=== PATIENT | female | born 1950 | race Caucasian/White ===

== ENCOUNTER 2016-11-13 15:07 | Inpatient (IN) | payer BC, MEDICARE ==
[~2016-11-13] VITALS: Ht 161.3 cm; Wt 94.3 kg
[~2016-11-13 15:07] MED LIST: ASPI-482 PO; BUPR300T4 PO; CHOL20003 PO; DOCU50CA6 PO; ERYT500T17 PO; FENO135C PO; FENT1PAT17 TP; FEXO60TA25 PO; HYDR-2672 PO; HYDR-963 PO; HYDR-965 PO; HYDR25TA9 PO; IBUP200C PO; LORA1TAB PO; METO50TA2 PO; OMEP40CA5 PO; PRED20TA PO; SIMV80TA3 PO; SUCR1TAB PO; SUCRALFATE; VENL75TA PO
[2016-11-13 15:53] LABS: BASO # 0.1 x10^3/uL (0.0-0.2); BASO % 1 % (0-3); EOS % 1 % (0-3); HEMATOCRIT 42.3 % (36.0-47.0); HEMOGLOBIN 13.9 g/dL (12.0-15.5); LYMPH # 2.2 x10^3/uL (1.0-4.8); LYMPH % 17 % (24-48); MEAN CORPUSCULAR HEMOGLOBIN 28 pg (25-35); MEAN CORPUSCULAR HGB CONC 33 g/dL (31-37); MEAN CORPUSCULAR VOLUME 85 fL (79-100); MONO % 7 % (0-9); NEUT % 75 % (31-73); PLATELET COUNT 480 x10^3/uL (140-400); RED BLOOD COUNT 4.95 x10^6/uL (3.50-5.40); RED CELL DISTRIBUTION WIDTH 13.3 % (11.5-14.5); WHITE BLOOD COUNT 13.2 x10^3/uL (4.0-11.0)
[2016-11-13 16:04] LABS: CALCIUM 9.6 mg/dL (8.5-10.1); CREATININE 0.9 mg/dL (0.6-1.0); GFR 62.3; POTASSIUM 4.3 mmol/L (3.5-5.1)
--- NOTE | 2016-11-13 16:06 | EKG ---
[facility] [address] [place] [address] Test Date: 2016-11-13 Test Time: 15:24:19 Pat Name: CANDACE WAHL Department: Room: Gender: F [employer] Car Driver: : 1950 Requested By: VERÓNICA MATA Order Number: [id number] Reading MD: Fam Huitron Measurements Intervals [place] Rate: 68 P: 63 TX: 192 QRS: 46 QRSD: 96 T: 38 QT: 412 QTc: 438 Interpretive Statements SINUS RHYTHM Electronically Signed On 11-17-2016 10:07:26 RECEIVER BULK SYSTEM by Fam Huitron
[2016-11-13] MEDS ORDERED: GADOBUTROL 10 MMOL/10 ML VIAL IV ONE (16:30)
[2016-11-13] MEDS ORDERED: ONDANSETRON PF 4 MG/2 ML VIAL. IV PRN (16:45)
[2016-11-13] MEDS ORDERED: ACETAMINOPHEN 325 MG TABLET. PO PRN (16:45)
--- NOTE | 2016-11-13 16:49 | PHYS DOC ---
Past Medical History Past Medical History: Diabetes-Type II, Hypertension, Other Additional Past Medical Histor: CHRONIC BACK PAIN Past Surgical History: Other Additional Past Surgical Histo: RT KNEE, LAMINECTOMY X2 Alcohol Use: None Drug Use: None Adult General Chief Complaint Chief Complaint: NEURO SYMPTOMS/DEFICITS HPI HPI This is a 66-year-old female who developed an episode of lower extremity weakness which shaking while in the shower today patient states she had trouble standing and had to brace herself against a wall to avoid falling. Patient states she still feels extremely weak in her lower extremities and upon standing does seem to have shaking. She went into a urgent care today in the center here for further evaluation and she does relate over the last few months she's been having issues while driving her car in which she states her right foot has trouble pressing on the pedals. She is currently alert and oriented and able to follow commands. She denies any chest pain or SOB. She denies any fever or chills. Review of Systems Review of Systems Constitutional: Denies fever or chills [] Eyes: Denies change in visual acuity, redness, or eye pain [] HENT: Denies nasal congestion or sore throat [] Respiratory: Denies cough or shortness of breath [] Cardiovascular: No additional information not addressed in HPI [] GI: Denies abdominal pain, nausea, vomiting, bloody stools or diarrhea [] : Denies dysuria or hematuria [] Musculoskeletal: Denies back pain or joint pain [] Integument: Denies rash or skin lesions [] Neurologic: Denies headache, has some weakness, denies sensory changes [] Endocrine: Denies polyuria or polydipsia [] Current Medications Current Medications Current Medications Medications (Trade) Dose Ordered Sig/[facility] Start Time Stop Time Status Last Admin Dose Admin Acetaminophen (Tylenol) 650 mg PRN Q4HRS PRN 11/13/16 16:45 11/14/16 16:44 Aspirin (Nelly Aspirin) 325 mg 1X ONCE 11/13/16 17:00 11/13/16 17:01 DC Gadobutrol (Gadavist) 10 mmol 1X ONCE 11/13/16 16:30 11/13/16 16:31 DC 11/13/16 16:45 10 MMOL Ondansetron HCl (Zofran) 4 mg PRN Q8HRS PRN 11/13/16 16:45 11/14/16 16:44 Allergies Allergies Allergies Coded Allergies Type Severity Reaction Last Updated Verified nickel Allergy Intermediate Rash 02/20/14 Yes Physical Exam Physical Exam Constitutional: Well developed, well nourished, no acute distress, non-toxic appearance. [] HENT: Normocephalic, atraumatic, bilateral external ears normal, oropharynx moist, no oral exudates, nose normal. [] Eyes: PERRLA, EOMI, conjunctiva normal, no discharge. [] Neck: Normal range of motion, no tenderness, supple, no stridor. [] Cardiovascular:Heart rate regular rhythm, no murmur [] Lungs & Thorax: Bilateral breath sounds clear to auscultation [] Abdomen: Bowel sounds normal, soft, no tenderness, no masses, no pulsatile masses. [] Skin: Warm, dry, no erythema, no rash. [] Back: No tenderness, no CVA tenderness. [] Extremities: No tenderness, no cyanosis, no clubbing, ROM intact, no edema. [] Neurologic: Alert and oriented X 3, normal motor function, normal sensory function, mild intention tremor with heel to hyman test and finger to nose. [] Psychologic: Affect normal, judgement normal, mood normal. [] Current Patient Data Vital Signs Vital Signs Date Time Temp Pulse Resp B/P Pulse Ox O2 Delivery O2 Flow Rate FiO2 11/13/16 15:10 98.0 66 19 120/86 98 Room Air 98.0 Lab Values Laboratory Tests Test 11/13/16 15:19 11/13/16 15:20 Glucose (Fingerstick) 88mg/dL (70-99) White Blood Count 13.2x10^3/uL (4.0-11.0) H Red Blood Count 4.95x10^6/uL (3.50-5.40) Hemoglobin 13.9g/dL (12.0-15.5) Hematocrit 42.3% (36.0-47.0) Mean Corpuscular Volume 85fL (79-100) Mean Corpuscular Hemoglobin 28pg (25-35) Mean Corpuscular Hemoglobin Concent 33g/dL (31-37) Red Cell Distribution Width 13.3% (11.5-14.5) Platelet Count 480x10^3/uL (140-400) H Neutrophils (%) (Auto) 75% (31-73) H Lymphocytes (%) (Auto) 17% (24-48) L Monocytes (%) (Auto) 7% (0-9) Eosinophils (%) (Auto) 1% (0-3) Basophils (%) (Auto) 1% (0-3) Neutrophils # (Auto) 9.9x10^3uL (1.8-7.7) H Lymphocytes # (Auto) 2.2x10^3/uL (1.0-4.8) Monocytes # (Auto) 0.9x10^3/uL (0.0-1.1) Eosinophils # (Auto) 0.1x10^3/uL (0.0-0.7) Basophils # (Auto) 0.1x10^3/uL (0.0-0.2) Sodium Level 137mmol/L (136-145) Potassium Level 4.3mmol/L (3.5-5.1) Chloride Level 100mmol/L (98-107) Carbon Dioxide Level 28mmol/L (21-32) Anion Gap 9 (6-14) Blood Urea Nitrogen 18mg/dL (7-20) Creatinine 0.9mg/dL (0.6-1.0) Estimated GFR (Cockcroft-Gault) 62.3 Glucose Level 104mg/dL (70-99) H Calcium Level 9.6mg/dL (8.5-10.1) Laboratory Tests 11/13/16 15:20 Laboratory Tests 11/13/16 15:20 EKG EKG EKG as interpreted by ma shows sinus rhythm with rate of 68 bpm. No obvious signs of ischemia on this EKG. Radiology/Procedures Radiology/Procedures Brain MRI with and without contrast demonstrates the following: There is symmetric prominence of the ventricles and sulci. Scattered FLAIR hyperintensities throughout the supratentorial white matter and delon are nonspecific but most suggestive of moderate small vessel ischemic disease. There is a small old infarct in the delon on the right. There is an old lacunar infarct in the left caudate head. Prominent perivascular spaces are noted bilaterally in the basal ganglia. There is no acute intracranial hemorrhage or extra-axial fluid collection. There is no mass effect or midline shift. There is no restricted diffusion to suggest an acute infarct. The sagittal midline structures are unremarkable. The pituitary and suprasellar region are unremarkable. The intracranial flow voids are preserved. There is minimal ethmoid and maxillary mucosal thickening. There is no pathologic enhancement. Course & Med Decision Making Course & Med Decision Making Pertinent Labs and Imaging studies reviewed. (See chart for details) This 66-year-old female who's had lower extremity weakness and a brain MRI that is negative for any acute intracranial findings but does demonstrate left caudate and right pontine infarcts with some probable small vessel disease, be admitted to the hospital for further evaluation and treatment by neurology. I discussed case with the neurologist, Dr. Flores, who agreed with this plan and stated to check a urine toxicology panel as well as administer a full aspirin. I discussed the case also with Dr. Irving, who agreed to accept the patient for admission for her ongoing weakness and fall risk. At this time her blood work is unrevealing. Her EKG was negative for any acute signs of ischemia. Patient was ambulated and was still very unsteady with her gait. She was admitted without incident. Dragon Disclaimer Dragon Disclaimer This electronic medical record was generated, in whole or in part, using a voice recognition dictation system. Departure Departure Impression: Primary Impression: Weakness Additional Impression: Unsteady gait Disposition: ADMITTED INPATIENT Admitting Physician: Skylar Irving Condition: STABLE Referrals: ESVIN FALLON Jr, MD (PCP) Problem Qualifiers VERÓNICA MATA DO Nov 13, 2016 16:49
--- NOTE | 2016-11-13 16:49 | RAD ---
PROCEDURE MRI brain with and without contrast. HISTORY Right facial droop and confusion. TECHNIQUE Sagittal T1, axial T1, axial T2, axial FLAIR, axial T2 gradient, diffusion imaging with ADC map, post-contrast axial, and post-contrast coronal sequences are provided. The patient received 10 milliliters of intravenous Gadavist without complication. COMPARISON None provided. FINDINGS There is symmetric prominence of the ventricles and sulci. Scattered FLAIR hyperintensities throughout the supratentorial white matter and delon are nonspecific but most suggestive of moderate small vessel ischemic disease. There is a small old infarct in the delon on the right. There is an old lacunar infarct in the left caudate head. Prominent perivascular spaces are noted bilaterally in the basal ganglia. There is no acute intracranial hemorrhage or extra-axial fluid collection. There is no mass effect or midline shift. There is no restricted diffusion to suggest an acute infarct. The sagittal midline structures are unremarkable. The pituitary and suprasellar region are unremarkable. The intracranial flow voids are preserved. There is minimal ethmoid and maxillary mucosal thickening. There is no pathologic enhancement. IMPRESSION 1. No acute intracranial findings. 2. 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 3. Brain parenchymal volume loss and moderate probable small-vessel ischemic disease. Electronically signed by: Chi Streeter MD (Nov 13, 2016 16:47:50)
[2016-11-13] MEDS ORDERED: ASPIRIN 325 MG TABLET PO ONE (17:00)
[2016-11-13 18:00] VITALS: BP 113/66
[2016-11-13 18:01] VITALS: BP 113/66
[2016-11-13] MEDS ORDERED: GLIM1TAB2 PO (19:22)
[2016-11-13 19:58] VITALS: BP 122/55
--- NOTE | 2016-11-13 22:25 | PDOC1 ---
History and Physical Date of Admission Date of Admission DATE: 11/13/16 TIME: 22:19 Identification/Chief Complaint Chief Complaint leg weakness Source Source: Chart review, Patient History of Present Illness History of Present Illness Ms. Lovett, is a 66-year-old female Admit from ER for acute lower extremity weakness. She reports shaking while in the shower today; had to brace herself against a wall to avoid falling. Weakness in lower extremities only, she has felt well otherwise, no fever or chills or cough or travel. she now feels improved she does report falling and possibly losing consciousness twice in the past few months. Past Medical History Cardiovascular: HTN, Syncope, Hyperlipidemia Pulmonary: No pertinent hx Renal/: No pertinent hx Endocrine: Diabetes Dermatology: No pertinent hx Past Surgical History Past Surgical History: Total knee replacement Social History Smoke: No ALCOHOL: none Current Problem List Problem List Problems Medical Problems: (1) Unsteady gait Status: Acute (2) Weakness Status: Acute Problems: Current Medications Current Medications Current Medications Gadobutrol (Gadavist) 10 mmol 1X ONCE IV Last administered on 11/13/16 16:45 ; Start 11/13/16 at 16:30; Stop 11/13/16 at 16:31; Status DC Ondansetron HCl (Zofran) 4 mg PRN Q8HRS PRN IV NAUSEA/VOMITING; Start 11/13/16 at 16:45; Stop 11/14/16 at 16:44 Acetaminophen (Tylenol) 650 mg PRN Q4HRS PRN PO FEVER; Start 11/13/16 at 16:45 ; Stop 11/14/16 at 16:44 Aspirin (Nelly Aspirin) 325 mg 1X ONCE PO Last administered on 11/13/16 17:25 ; Start 11/13/16 at 17:00; Stop 11/13/16 at 17:01; Status DC Active Scripts Active Reported Glimepiride 1 Mg Tablet 1 Tab PO DAILY Hydrocodone-Apap 10-325 (Hydrocodone Bit/Acetaminophen) 1 Each Tablet 1 Tab PO PRN Q6HRS PRN Lorazepam 1 Mg Tablet 1 Mg PO PRN DAILY PRN Colace (Docusate Sodium) 50 Mg Capsule 50 Mg PO PRN Vitamin D3 (Cholecalciferol (Vitamin D3)) 2,000 Unit Capsule 2,000 Unit PO DAILY Aspir 81 (Aspirin) 81 Mg Tablet.dr 81 Mg PO DAILY Hydrochlorothiazide Tablet (Hydrochlorothiazide) 25 Mg Tablet 25 Mg PO DAILY Simvastatin 80 Mg Tablet 80 Mg PO HS Trilipix (Fenofibric Acid (Choline)) 135 Mg Capsule.dr 135 Mg PO DAILY Omeprazole 40 Mg Capsule.dr 40 Mg PO DAILY Metoprolol Tartrate 50 Mg Tablet 50 Mg PO BID Bupropion Xl (Bupropion Hcl) 300 Mg Tab.er.24h 300 Mg PO DAILY Venlafaxine Hcl 75 Mg Tablet 300 Mg PO DAILY Kate Allergy (Fexofenadine Hcl) 60 Mg Tablet 60 Mg PO PRN Allergies Allergies: Coded Allergies: nickel (Verified Allergy, Intermediate, Rash, 02/20/14) ROS General: YES: Fatigue, No: Appetite, Chills, Night Sweats, Other PSYCHOLOGICAL ROS: No: Anxiety, Behavioral Disorder, Concentration difficultie , Decreased libido, Depression, Disorientation, Hallucinations, Hostility, Irritablity, Memory difficulties, Mood Swings, Obsessive thoughts, Other, Physical abuse, Sexual abuse, Sleep disturbances, Suicidal ideation Eyes: No Blurry vision, No Decreased vision, No Double vision, No Dry eyes, No Excessive tearing, No Eye Pain, No Itchy Eyes, No Loss of vision, No Other, No Photophobia, No Scotomata, No Uses contacts, No Uses glasses HEENT: No: Epistaxis, Heacaches, Hearing change, Nasal congestion, Nasal discharge, Oral lesions, Other, Sinus pain, Sneezing, Snoring, Sore Throat, Tinnitus, Vertigo, Visual Changes, Vocal changes ALLERGY AND IMMUNOLOGY: No: Hives, Insect Bite Sensitivity, Itchy/Watery Eyes, Nasal Congestion, Other, Post Nasal Drip, Seasonal Allergies Respiratory: No: Cough, Hemoptysis, Orthopnea, Other, Pleuritic Pain, SOB with excertion, Shortness of breath, Sputum Changes, Stridor, Tachypnea, Wheezing Cardiovascular: No Chest Pain, No Edema, No Lt Headedness, No Orthopnea, No Other, No Palpitations, No Paroxysmal Noc. Dyspnea Gastrointestinal: No Abdominal Pain, No Constipation, No Diarrhea, No Hematochezia, No Melena, No Nausea, No Other, No Vomiting Genitourinary: No , No , No , No , No , No , No , No Discharge, No Dysuria, No Flank Pain, No Frequency, No Hematuria, No Incontinence, No Other, No Pain, No Retention, No Urgency Musculoskeletal: Yes Joint Pain, Yes Muscular Weakness, No Gait Disturbance, No Joint Stiffness, No Joint Swelling, No Muscle Pain, No Other, No Pain In:, No Swelling In: Neurological: Yes Gait Disturbance, No Behavorial Changes, No Bowel/Bladder ControlChng, No Confusion, No Dizziness, No Headaches, No Impaired Coord/balance, No Memory Loss, No Numbness/ Tingling, No Other, No Seizures, No Speech Problems, No Tremors, No Visual Changes, No Weakness Skin: No Acne, No Dry Skin, No Eczema, No Hair Changes, No Lumps, No Mole Changes, No Mottling, No Nail Changes, No Other, No Pruritus, No Rash, No Skin Lesion Changes Physical Exam General: Alert, Oriented X3, Cooperative HEENT: Atraumatic, PERRLA Lungs: Clear to auscultation Heart: S1S2, RRR Abdomen: Normal bowel sounds (obese), Soft Extremities: No clubbing, No cyanosis, No edema Skin: No rashes, No breakdown, No significant lesion Neuro: Normal speech, Normal tone, Sensation intact Psych/Mental Status: Mood NL Vitals Vitals Vital Signs Date Time Temp Pulse Resp B/P Pulse Ox O2 Delivery O2 Flow Rate FiO2 11/13/16 19:58 97.9 67 20 122/55 98 Room Air 97.9 Labs Labs Laboratory Tests Test 11/13/16 15:19 11/13/16 15:20 11/13/16 20:34 Glucose (Fingerstick) 88mg/dL (70-99) 152mg/dL (70-99) White Blood Count 13.2x10^3/uL (4.0-11.0) Red Blood Count 4.95x10^6/uL (3.50-5.40) Hemoglobin 13.9g/dL (12.0-15.5) Hematocrit 42.3% (36.0-47.0) Mean Corpuscular Volume 85fL (79-100) Mean Corpuscular Hemoglobin 28pg (25-35) Mean Corpuscular Hemoglobin Concent 33g/dL (31-37) Red Cell Distribution Width 13.3% (11.5-14.5) Platelet Count 480x10^3/uL (140-400) Neutrophils (%) (Auto) 75% (31-73) Lymphocytes (%) (Auto) 17% (24-48) Monocytes (%) (Auto) 7% (0-9) Eosinophils (%) (Auto) 1% (0-3) Basophils (%) (Auto) 1% (0-3) Neutrophils # (Auto) 9.9x10^3uL (1.8-7.7) Lymphocytes # (Auto) 2.2x10^3/uL (1.0-4.8) Monocytes # (Auto) 0.9x10^3/uL (0.0-1.1) Eosinophils # (Auto) 0.1x10^3/uL (0.0-0.7) Basophils # (Auto) 0.1x10^3/uL (0.0-0.2) Sodium Level 137mmol/L (136-145) Potassium Level 4.3mmol/L (3.5-5.1) Chloride Level 100mmol/L (98-107) Carbon Dioxide Level 28mmol/L (21-32) Anion Gap 9 (6-14) Blood Urea Nitrogen 18mg/dL (7-20) Creatinine 0.9mg/dL (0.6-1.0) Estimated GFR (Cockcroft-Gault) 62.3 Glucose Level 104mg/dL (70-99) Calcium Level 9.6mg/dL (8.5-10.1) Laboratory Tests Test 11/13/16 15:19 11/13/16 15:20 11/13/16 20:34 Glucose (Fingerstick) 88mg/dL (70-99) 152mg/dL (70-99) White Blood Count 13.2x10^3/uL (4.0-11.0) Red Blood Count 4.95x10^6/uL (3.50-5.40) Hemoglobin 13.9g/dL (12.0-15.5) Hematocrit 42.3% (36.0-47.0) Mean Corpuscular Volume 85fL (79-100) Mean Corpuscular Hemoglobin 28pg (25-35) Mean Corpuscular Hemoglobin Concent 33g/dL (31-37) Red Cell Distribution Width 13.3% (11.5-14.5) Platelet Count 480x10^3/uL (140-400) Neutrophils (%) (Auto) 75% (31-73) Lymphocytes (%) (Auto) 17% (24-48) Monocytes (%) (Auto) 7% (0-9) Eosinophils (%) (Auto) 1% (0-3) Basophils (%) (Auto) 1% (0-3) Neutrophils # (Auto) 9.9x10^3uL (1.8-7.7) Lymphocytes # (Auto) 2.2x10^3/uL (1.0-4.8) Monocytes # (Auto) 0.9x10^3/uL (0.0-1.1) Eosinophils # (Auto) 0.1x10^3/uL (0.0-0.7) Basophils # (Auto) 0.1x10^3/uL (0.0-0.2) Sodium Level 137mmol/L (136-145) Potassium Level 4.3mmol/L (3.5-5.1) Chloride Level 100mmol/L (98-107) Carbon Dioxide Level 28mmol/L (21-32) Anion Gap 9 (6-14) Blood Urea Nitrogen 18mg/dL (7-20) Creatinine 0.9mg/dL (0.6-1.0) Estimated GFR (Cockcroft-Gault) 62.3 Glucose Level 104mg/dL (70-99) Calcium Level 9.6mg/dL (8.5-10.1) VTE Prophylaxis Ordered VTE Prophylaxis Devices: No VTE Pharmacological Prophylaxi: Yes Assessment/Plan Assessment/Plan leg weakness, shaking, almost fell in the shower she report 2 prior episodes of syncope in the past few months leg weakness, acquired, walks with can or walker, consult Physiatry, may need rehab obesity, BMI 36 MRI brain shows prior ischemic disease, changes consistent with early vascular dementia admit JENS AL MD Nov 13, 2016 22:25
[2016-11-13 23:00] VITALS: BP 125/58
[2016-11-13] MEDS ORDERED: LORAZEPAM 1 MG TABLET. PO PRN (23:15)
[2016-11-14] MEDS: SIMVASTATIN 40 MG TABLET. PO SCH ×2 (00:09→20:38)
[2016-11-14] MEDS: METOPROLOL TART IMMED RELEASE 50 MG TABLET PO SCH ×3 (00:10→20:39)
[2016-11-14] MEDS: HYDROCODONE/APAP 10/325 TABLET. PO PRN ×2 (01:55→08:13)
[2016-11-14 03:00] VITALS: BP 128/61
[2016-11-14 06:06] LABS: BASO # 0.1 x10^3/uL (0.0-0.2); BASO % 1 % (0-3); EOS % 2 % (0-3); HEMATOCRIT 38.4 % (36.0-47.0); HEMOGLOBIN 12.4 g/dL (12.0-15.5); LYMPH # 2.5 x10^3/uL (1.0-4.8); LYMPH % 23 % (24-48); MEAN CORPUSCULAR HEMOGLOBIN 28 pg (25-35); MEAN CORPUSCULAR HGB CONC 32 g/dL (31-37); MEAN CORPUSCULAR VOLUME 88 fL (79-100); MONO % 8 % (0-9); NEUT % 66 % (31-73); PLATELET COUNT 362 x10^3/uL (140-400); RED BLOOD COUNT 4.36 x10^6/uL (3.50-5.40); RED CELL DISTRIBUTION WIDTH 13.4 % (11.5-14.5); WHITE BLOOD COUNT 10.6 x10^3/uL (4.0-11.0)
[2016-11-14 06:36] LABS: CALCIUM 9.2 mg/dL (8.5-10.1); CREATININE 0.9 mg/dL (0.6-1.0); GFR 62.3; POTASSIUM 3.8 mmol/L (3.5-5.1)
[2016-11-14 07:00] VITALS: BP 142/85
[2016-11-14] MEDS: FENOFIBRATE,MICRONIZED 134 MG CAPSULE PO SCH (08:12)
[2016-11-14] MEDS: ASPIRIN ENTERIC COATED 81 MG TABLET.DR. PO SCH (08:12)
[2016-11-14] MEDS: PANTOPRAZOLE 40 MG TABLET. PO SCH (08:12)
[2016-11-14] MEDS: HYDROCHLOROTHIAZIDE 25 MG TABLET PO SCH (08:12)
[2016-11-14] MEDS: CHOLECALCIFEROL (VITAMIN D3) 1,000 UNIT TABLET PO SCH (08:14)
[2016-11-14] MEDS: VENLAFAXINE 75 MG TABLET. PO SCH (08:15)
[2016-11-14] MEDS: GLIMEPIRIDE 2 MG TABLET PO SCH (08:15)
[2016-11-14] MEDS: buPROPion XL 150 MG TAB.ER.24H PO SCH (08:15)
[2016-11-14] MEDS ORDERED: METOPROLOL TART IMMED RELEASE 50 MG TABLET PO SCH (09:00)
[2016-11-14] MEDS ORDERED: BUPIVACAINE MPF 0.25% 10 ML VIAL. IJ ONE (10:15)
[2016-11-14] MEDS ORDERED: methylPREDNISolone ACETATE 40 MG/ML VIAL. IM ONE (10:15)
[2016-11-14 11:00] VITALS: BP 140/56
[2016-11-14 11:59] LABS: BILIRUBIN,URINE NEGATIVE (NEG); GLUCOSE,URINE NEGATIVE (NEG); NITRITE,URINE NEGATIVE (NEG); PROTEIN,URINE NEGATIVE (NEG-TRACE)
[2016-11-14 12:03] LABS: BARBITURATES NEG (NEG); BENZODIAZEPINES NEG (NEG); CANNABINOIDS NEG (NEG); COCAINE NEG (NEG); METHADONE NEG (NEG); OPIATES POS (NEG); PHENCYCLIDINE NEG (NEG)
[2016-11-14 12:08] LABS: ETHANOL, URINE NEG (NEG)
[2016-11-14 12:38] LABS: BACTERIA,URINE FEW /HPF (0-FEW); RBC,URINE RARE /HPF (0-2); SQUAMOUS EPITHELIAL CELL,UR FEW /LPF
--- NOTE | 2016-11-14 13:18 | RAD ---
PROCEDURE MRI cervical spine without contrast. HISTORY Right arm numbness. Shaking and balance problems. Neck pain and hyperreflexia of left knee. TECHNIQUE Sagittal T1, sagittal T2, sagittal STIR, axial T2, and axial T2 gradient sequences are provided. COMPARISON None. FINDINGS There is no malalignment. There is no marrow edema. There is no worrisome marrow lesion. There is no cord signal abnormality. T2 hyperintensity in the delon is nonspecific but typically secondary to small vessel ischemic disease. Correlate with any concern for central pontine myelinolysis. There is cerebellar volume loss. Degenerative findings by individual level are as follows: C2-C3: There is minimal buckling of ligamentum flavum but no canal or foraminal compromise. C3-C4: There is a disc osteophyte complex and uncinate process spurring with buckling of ligamentum flavum. There is minimal facet hypertrophy. Midline AP diameter of the thecal sac is mildly narrowed down to 8-9 millimeters. There is mild to moderate right and mild left foraminal narrowing. C4-C5: There is a disc osteophyte complex and uncinate process spurring. There is buckling of ligamentum flavum. Midline AP diameter of the thecal sac is narrowed to 10 millimeters. There is at least moderate left and [id number] right foraminal narrowing. C5-C6: There is a disc osteophyte complex and uncinate process spurring. There is buckling of ligamentum flavum. Midline AP diameter of the thecal sac is narrowed to 9 millimeters. There is high-grade left and probably moderate to severe right foraminal narrowing. C6-C7: Disc bulge and minimal uncinate process spurring are noted without high-grade canal or foraminal compromise. C7-T1: Minimal disc bulge and uncinate process spurring are noted with mild to moderate left and mild right foraminal narrowing. IMPRESSION Disc osteophyte complexes, uncinate process spurring, and buckling of ligamentum flavum are noted throughout the cervical spine. Canal stenosis is noted from C3-C4 through C5-C6. There are several levels of foraminal narrowing, as described above. Electronically signed by: Chi Streeter MD (Nov 14, 2016 13:16:37)
--- NOTE | 2016-11-14 13:46 | RAD ---
Carotid ultrasound, 11/14/2016: History: CVA symptoms Duplex evaluation of the carotid arteries in the neck was performed including grayscale, color-flow and spectral Doppler analysis. There is moderate atherosclerotic plaquing at both carotid bifurcations. The plaques are partially calcified. On the left there is a mild velocity celebration in the internal carotid artery up to 135 cm/s. The end-diastolic velocity at that level is 34 cm/s. The internal carotid artery to common carotid artery ratio is 1.9. The peak systolic velocity suggest narrowing in the 50 to 70% diameter range, while the end-diastolic velocity measurements and internal carotid to common carotid artery ratio suggests a lesser degree of narrowing. No significant velocity acceleration is evident at the right carotid bifurcation. The peak systolic velocity in the right internal carotid artery is 76 cm/s. Antegrade flow is present in both vertebral arteries in the neck. IMPRESSION: Moderate atherosclerotic plaquing at both carotid bifurcations, left greater than right, with underlying luminal narrowing in the 0-50% diameter range bilaterally. Note: Stenosis calculations for CT, MRA and conventional angiography are based upon determination of the distal ICA diameter in accordance with the NASCET methodology. Stenosis calculations for Doppler studies are derived from validated velocity criteria which are known to correlate with NASCET methodology of determining stenosis.
--- NOTE | 2016-11-14 14:21 | RAD ---
PROCEDURE MRI lumbar spine without contrast. HISTORY Bilateral leg weakness. History of 2 prior laminectomies. Shaking and balance problems. Hyperreflexia of left knee. TECHNIQUE Sagittal T1, sagittal T2, sagittal STIR, axial T1, and axial T2 sequences are provided. COMPARISON August 07, 2014. FINDINGS Mild dextrocurvature centered at L2-L3 is again noted. Negligible anterolisthesis is noted at L3-L4. 4 millimeters of anterolisthesis is noted at L4-L5. Decompression from L3-L4 through L5-S1 is again noted. Endplate edema is noted at L2-L3, increased from prior. Endplate irregularity at L2-L3 is increased as well. A few Schmorl's nodes in the lumbar spine are present. There is diffuse disc desiccation. The conus medullaris is normal in signal intensity and in position. The numbering system assumes 5 lumbar type vertebral bodies. Findings by individual level are as follows: L1-L2: There is facet hypertrophy without canal or foraminal compromise. L2-L3: There is a disc osteophyte complex. There is a left foraminal/far lateral broad-based protrusion. There is facet hypertrophy. Midline AP diameter of the thecal sac is mildly narrowed to 11 millimeters. There is mild left lateral recess narrowing. There is mild to moderate left and moderate right foraminal narrowing. L3-L4: Disc bulge and facet hypertrophy are noted. Midline AP diameter of the thecal sac is minimally narrowed to 12 millimeters. There is mild to moderate bilateral foraminal narrowing, right exiting nerve root compressed L4-L5: Disc bulge and facet hypertrophy are noted. There is no canal stenosis post decompression. Midline AP diameter of the thecal sac is 14 millimeters. There is mild to moderate bilateral foraminal narrowing, right exiting nerve root in contact with the disc bulge and the left exiting nerve root compressed by the disc bulge and hypertrophic facet. L5-S1: Disc osteophyte complex is eccentric to the left. Minimal facet hypertrophy is noted. There is no canal stenosis. There is mild left foraminal narrowing. IMPRESSION 1. Degenerative disc disease and facet hypertrophy are noted throughout the lumbar spine. Findings have increased from 2014. Particularly, endplate edema and irregularity at L2-L3 has increased. This is favored to be degenerative in etiology. Correlate with any concern for osteomyelitis and discitis. 2. Posterior decompression from L3-L4 through L5-S1. Electronically signed by: Chi Streeter MD (Nov 14, 2016 14:20:25)
[2016-11-14 15:00] VITALS: BP 139/59
--- NOTE | 2016-11-14 17:38 | PDOC2 ---
NEUROLOGY CONSULT Date of Admission Date of Admission DATE: 11/14/16 TIME: 17:24 Reason for Consult Reason for Consult: IMPRESSION: LE weakness on 11/13. L2-3 discitis Syncope or presyncope. 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 Opiates positive in system Obesity. Memory decline. No evidence of acute CVA this time. RECOMMENDATIONS/PLAN: Continue ASA daily. Continue Zocor HS. lab: see orders. OT/PT Weight reduction. Please consult NS for possible L-spine discitis. See at [facility] as [facility]-patient for memory problem. FU with PCP. HISTORY OF THE PRESENT ILLNESS: 66-y-old female patient with above medical diseases had a syncopal or presyncopal episode and symptoms of LE weakness and shakings during and after shower on 11/13. She stated she had chronic back problems and had back surgery in past. No symptoms of cranial nerve and her UE were not involved this time. No urinary or bowel dysfunction.Neurological evaluation ruled out acute CVA. Her L-spine MRI concerned L2-3 discitis. PAST MEDICAL HISTORY: Please see above. PAST SURGERY HISTORY: L-spine surgery, fusion. Right knee replacement. ALLERGY: Reviewed. MEDICATIONS: Refer to [facility] FAMILY HISTORY: Non contributory. SOCIAL HISTORY: Lives with her at home. Denies current substance and illicit drug use. REVIEW OF SYSTEMS: Constitutional: No malnutrition, weight loss, cachexia. Head: No traumatic brain or head injury. Skin: No edema, or rash. Ear: No infection, tinnitus. Eyes: No vision loss or color blindness. Nose: No bleeding or purulent discharges. Hearing: No hearing decrease. Neck: No injury. Breast: No history of cancer, masses,or discharges. Cardiac: HTN, HLD. Pulmonary: No COPD. GI: No GI ulcer, GI bleeding. Urinary/genital: UTI. Endocrinologic: Obesity. Skeletomuscular: OA, back pain. Neurological: see HP. Psychiatric: Denies drug use/abuse. Otherwise, not [id number] review of systems. PHYSICAL EXAMINATION: General appearance is in no acute distress. HEENT: Normocephalic and nontraumatic. Eyes, nose, ears, and throat are unremarkable. Neck is supple. No lymphadenopathy. No crepitus. Cardiovascular: S1, S2, regular rate and rhythm. Pulmonary: Clear to auscultation bilaterally. Abdomen: Bowel sounds are positive. Extremities: No rash, lesions, or edema. No restriction of range of motion NEUROLOGICAL EXAMINATION: Awake. Oriented to time, place and person. PERRL. EOMI. CN: no focal findings. Muscle tone: within normal. Muscle strength: 5- DTR: 2+ UE and left knee, 1 right knee Plantar reflex: Neutral response bilaterally Gait: not examined in bed. Sensory exam: no acute abnormal findings. No obvious cerebellar signs elicited. Current Medications Current Medications Current Medications Gadobutrol (Gadavist) 10 mmol 1X ONCE IV Last administered on 11/13/16 16:45 ; Start 11/13/16 at 16:30; Stop 11/13/16 at 16:31; Status DC Ondansetron HCl (Zofran) 4 mg PRN Q8HRS PRN IV NAUSEA/VOMITING; Start 11/13/16 at 16:45; Stop 11/14/16 at 16:44; Status DC Acetaminophen (Tylenol) 650 mg PRN Q4HRS PRN PO FEVER; Start 11/13/16 at 16:45 ; Stop 11/14/16 at 16:44; Status DC Aspirin (Nelly Aspirin) 325 mg 1X ONCE PO Last administered on 11/13/16 17:25 ; Start 11/13/16 at 17:00; Stop 11/13/16 at 17:01; Status DC Aspirin (Ecotrin) 81 mg DAILY PO Last administered on 11/14/16 08:12; Start at 09:00 Hydrochlorothiazide (Hydrodiuril) 25 mg DAILY PO Last administered on 08:12; Start 11/14/16 at 09:00 Acetaminophen/ Hydrocodone Bitart (Lortab 10/325) 1 tab PRN Q6HRS PRN PO PAIN Last administered on 11/14/16 08:13; Start 11/13/16 at 23:15 Lorazepam (Ativan) 1 mg PRN DAILY PRN PO ANXIETY / AGITATION; Start 11/13/16 at 23:15 Metoprolol Tartrate (Lopressor) 50 mg BID PO ; Start 11/14/16 at 09:00; Stop at 09:00; Status DC Venlafaxine HCl (Effexor) 300 mg DAILY PO Last administered on 11/14/16 08:15 ; Start 11/14/16 at 09:00 Bupropion HCl (Wellbutrin Xl) 300 mg DAILY PO Last administered on 11/14/16 08 :15; Start 11/14/16 at 09:00 Vitamin D (Vitamin D3) 2,000 unit DAILY PO Last administered on 11/14/16 08:14 ; Start 11/14/16 at 09:00 Fenofibrate (Lofibra) 134 mg DAILY PO Last administered on 11/14/16 08:12; Start 11/14/16 at 09:00 Glimepiride (Amaryl) 1 mg DAILY PO Last administered on 11/14/16 08:15; Start 11/14/16 at 09:00 Pantoprazole Sodium (Protonix) 40 mg DAILYAC PO Last administered on 11/14/16 08:12; Start 11/14/16 at 07:30 Simvastatin (Zocor) 80 mg HS PO ; Start 11/14/16 at 21:00; Stop 11/14/16 at 21: 00; Status DC Metoprolol Tartrate (Lopressor) 50 mg BID PO Last administered on 11/14/16 08: 14; Start 11/13/16 at 23:45 Simvastatin (Zocor) 80 mg HS PO Last administered on 11/14/16 00:09; Start at 23:45 Methylprednisolone Acetate (Depo-Medrol 40mg Vial) 40 mg 1X ONCE IM ; Start at 10:15; Stop 11/14/16 at 10:16; Status DC Bupivacaine HCl (Sensorcaine-Mpf 0.25%) 10 ml 1X ONCE IJ ; Start 11/14/16 at 10 :15; Stop 11/14/16 at 10:16; Status DC Active Scripts Active Reported Glimepiride 1 Mg Tablet 1 Tab PO DAILY Hydrocodone-Apap 10-325 (Hydrocodone Bit/Acetaminophen) 1 Each Tablet 1 Tab PO PRN Q6HRS PRN Lorazepam 1 Mg Tablet 1 Mg PO PRN DAILY PRN Colace (Docusate Sodium) 50 Mg Capsule 50 Mg PO PRN Vitamin D3 (Cholecalciferol (Vitamin D3)) 2,000 Unit Capsule 2,000 Unit PO DAILY Aspir 81 (Aspirin) 81 Mg Tablet.dr 81 Mg PO DAILY Hydrochlorothiazide Tablet (Hydrochlorothiazide) 25 Mg Tablet 25 Mg PO DAILY Simvastatin 80 Mg Tablet 80 Mg PO HS Trilipix (Fenofibric Acid (Choline)) 135 Mg Capsule. 135 Mg PO DAILY Omeprazole 40 Mg Capsule.dr 40 Mg PO DAILY Metoprolol Tartrate 50 Mg Tablet 50 Mg PO BID Bupropion Xl (Bupropion Hcl) 300 Mg Tab.er.24h 300 Mg PO DAILY Venlafaxine Hcl 75 Mg Tablet 300 Mg PO DAILY Kate Allergy (Fexofenadine Hcl) 60 Mg Tablet 60 Mg PO PRN Allergies Allergies: Coded Allergies: nickel (Verified Allergy, Intermediate, Rash, 02/20/14) Vitals VITALS Vital Signs Date Time Temp Pulse Resp B/P Pulse Ox O2 Delivery O2 Flow Rate FiO2 11/14/16 15:00 98.5 70 18 139/59 97 Room Air 98.5 Labs Labs Laboratory Tests Test 11/13/16 15:19 11/13/16 15:20 11/13/16 20:34 11/14/16 05:20 Glucose (Fingerstick) 88mg/dL (70-99) 152mg/dL (70-99) White Blood Count 13.2x10^3/uL (4.0-11.0) 10.6x10^3/uL (4.0-11.0) Red Blood Count 4.95x10^6/uL (3.50-5.40) 4.36x10^6/uL (3.50-5.40) Hemoglobin 13.9g/dL (12.0-15.5) 12.4g/dL (12.0-15.5) Hematocrit 42.3% (36.0-47.0) 38.4% (36.0-47.0) Mean Corpuscular Volume 85fL (79-100) 88fL (79-100) Mean Corpuscular Hemoglobin 28pg (25-35) 28pg (25-35) Mean Corpuscular Hemoglobin Concent 33g/dL (31-37) 32g/dL (31-37) Red Cell Distribution Width 13.3% (11.5-14.5) 13.4% (11.5-14.5) Platelet Count 480x10^3/uL (140-400) 362x10^3/uL (140-400) Neutrophils (%) (Auto) 75% (31-73) 66% (31-73) Lymphocytes (%) (Auto) 17% (24-48) 23% (24-48) Monocytes (%) (Auto) 7% (0-9) 8% (0-9) Eosinophils (%) (Auto) 1% (0-3) 2% (0-3) Basophils (%) (Auto) 1% (0-3) 1% (0-3) Neutrophils # (Auto) 9.9x10^3uL (1.8-7.7) 6.9x10^3uL (1.8-7.7) Lymphocytes # (Auto) 2.2x10^3/uL (1.0-4.8) 2.5x10^3/uL (1.0-4.8) Monocytes # (Auto) 0.9x10^3/uL (0.0-1.1) 0.8x10^3/uL (0.0-1.1) Eosinophils # (Auto) 0.1x10^3/uL (0.0-0.7) 0.2x10^3/uL (0.0-0.7) Basophils # (Auto) 0.1x10^3/uL (0.0-0.2) 0.1x10^3/uL (0.0-0.2) Sodium Level 137mmol/L (136-145) 140mmol/L (136-145) Potassium Level 4.3mmol/L (3.5-5.1) 3.8mmol/L (3.5-5.1) Chloride Level 100mmol/L (98-107) 103mmol/L (98-107) Carbon Dioxide Level 28mmol/L (21-32) 29mmol/L (21-32) Anion Gap 9 (6-14) 8 (6-14) Blood Urea Nitrogen 18mg/dL (7-20) 20mg/dL (7-20) Creatinine 0.9mg/dL (0.6-1.0) 0.9mg/dL (0.6-1.0) Estimated GFR (Cockcroft-Gault) 62.3 62.3 Glucose Level 104mg/dL (70-99) 108mg/dL (70-99) Calcium Level 9.6mg/dL (8.5-10.1) 9.2mg/dL (8.5-10.1) Test 11/14/16 08:00 11/14/16 11:30 11/14/16 13:22 11/14/16 15:30 Glucose (Fingerstick) 131mg/dL (70-99) 108mg/dL (70-99) Urine Collection Type Unknown Urine Color Yellow Urine Clarity Clear Urine pH 7.0 Urine Specific [place] 1.020 Urine Protein Negativemg/dL (NEG-TRACE) Urine Glucose (UA) Negativemg/dL (NEG) Urine Ketones (Stick) Negativemg/dL (NEG) Urine Blood Negative (NEG) Urine Nitrite Negative (NEG) Urine Bilirubin Negative (NEG) Urine Urobilinogen Dipstick 1.0mg/dL (0.2 mg/dL) Urine Leukocyte Esterase Moderate (NEG) Urine RBC Rare/HPF (0-2) Urine WBC 5-10/HPF (0-4) Urine Squamous Epithelial Cells Few/LPF Urine Bacteria Few/HPF (0-FEW) Urine Mucus Slight/LPF Urine Opiates Screen Pos (NEG) Urine Methadone Screen Neg (NEG) Urine Barbiturates Neg (NEG) Urine Phencyclidine Screen Neg (NEG) Urine Amphetamine/Methamphetamine Neg (NEG) Urine Benzodiazepines Screen Neg (NEG) Urine Cocaine Screen Neg (NEG) Urine Cannabinoids Screen Neg (NEG) Urine Ethyl Alcohol Neg (NEG) Erythrocyte Sedimentation Rate 32 (0-25) Creatine Kinase 78U/L (26-192) Laboratory Tests Test 11/13/16 20:34 11/14/16 05:20 11/14/16 08:00 11/14/16 11:30 Glucose (Fingerstick) 152mg/dL (70-99) 131mg/dL (70-99) White Blood Count 10.6x10^3/uL (4.0-11.0) Red Blood Count 4.36x10^6/uL (3.50-5.40) Hemoglobin 12.4g/dL (12.0-15.5) Hematocrit 38.4% (36.0-47.0) Mean Corpuscular Volume 88fL (79-100) Mean Corpuscular Hemoglobin 28pg (25-35) Mean Corpuscular Hemoglobin Concent 32g/dL (31-37) Red Cell Distribution Width 13.4% (11.5-14.5) Platelet Count 362x10^3/uL (140-400) Neutrophils (%) (Auto) 66% (31-73) Lymphocytes (%) (Auto) 23% (24-48) Monocytes (%) (Auto) 8% (0-9) Eosinophils (%) (Auto) 2% (0-3) Basophils (%) (Auto) 1% (0-3) Neutrophils # (Auto) 6.9x10^3uL (1.8-7.7) Lymphocytes # (Auto) 2.5x10^3/uL (1.0-4.8) Monocytes # (Auto) 0.8x10^3/uL (0.0-1.1) Eosinophils # (Auto) 0.2x10^3/uL (0.0-0.7) Basophils # (Auto) 0.1x10^3/uL (0.0-0.2) Sodium Level 140mmol/L (136-145) Potassium Level 3.8mmol/L (3.5-5.1) Chloride Level 103mmol/L (98-107) Carbon Dioxide Level 29mmol/L (21-32) Anion Gap 8 (6-14) Blood Urea Nitrogen 20mg/dL (7-20) Creatinine 0.9mg/dL (0.6-1.0) Estimated GFR (Cockcroft-Gault) 62.3 Glucose Level 108mg/dL (70-99) Calcium Level 9.2mg/dL (8.5-10.1) Urine Collection Type Unknown Urine Color Yellow Urine Clarity Clear Urine pH 7.0 Urine Specific [place] 1.020 Urine Protein Negativemg/dL (NEG-TRACE) Urine Glucose (UA) Negativemg/dL (NEG) Urine Ketones (Stick) Negativemg/dL (NEG) Urine Blood Negative (NEG) Urine Nitrite Negative (NEG) Urine Bilirubin Negative (NEG) Urine Urobilinogen Dipstick 1.0mg/dL (0.2 mg/dL) Urine Leukocyte Esterase Moderate (NEG) Urine RBC Rare/HPF (0-2) Urine WBC 5-10/HPF (0-4) Urine Squamous Epithelial Cells Few/LPF Urine Bacteria Few/HPF (0-FEW) Urine Mucus Slight/LPF Urine Opiates Screen Pos (NEG) Urine Methadone Screen Neg (NEG) Urine Barbiturates Neg (NEG) Urine Phencyclidine Screen Neg (NEG) Urine Amphetamine/Methamphetamine Neg (NEG) Urine Benzodiazepines Screen Neg (NEG) Urine Cocaine Screen Neg (NEG) Urine Cannabinoids Screen Neg (NEG) Urine Ethyl Alcohol Neg (NEG) Test 11/14/16 13:22 11/14/16 15:30 Glucose (Fingerstick) 108mg/dL (70-99) Erythrocyte Sedimentation Rate 32 (0-25) Creatine Kinase 78U/L (26-192) ANTONELLA LOPEZ MD Nov 14, 2016 17:38
--- NOTE | 2016-11-14 19:31 | PDOC ---
PROGRESS NOTES Chief Complaint Chief Complaint cc: leg weakness A.P Bilateral leg weakness, transient HTN DM Plan MRI Lspine pending PMNR following neurology following HTN/DM stable labs reviewed on exam, no weakness in LE PT.OT History of Present Illness History of Present Illness NO WEAKNESS NO GAIT PROBLEMS Vitals Vitals Vital Signs Date Time Temp Pulse Resp B/P Pulse Ox O2 Delivery O2 Flow Rate FiO2 11/14/16 15:00 98.5 70 18 139/59 97 Room Air 98.5 Physical Exam General: Alert, Oriented X3, Cooperative Heart: Normal S1, Normal S2 Abdomen: Normal bowel sounds (obese), Soft Extremities: No clubbing, No cyanosis, No edema Skin: No rashes, No breakdown, No significant lesion Labs LABS Laboratory Tests Test 11/13/16 20:34 11/14/16 05:20 11/14/16 08:00 11/14/16 11:30 Glucose (Fingerstick) 152mg/dL (70-99) 131mg/dL (70-99) White Blood Count 10.6x10^3/uL (4.0-11.0) Red Blood Count 4.36x10^6/uL (3.50-5.40) Hemoglobin 12.4g/dL (12.0-15.5) Hematocrit 38.4% (36.0-47.0) Mean Corpuscular Volume 88fL (79-100) Mean Corpuscular Hemoglobin 28pg (25-35) Mean Corpuscular Hemoglobin Concent 32g/dL (31-37) Red Cell Distribution Width 13.4% (11.5-14.5) Platelet Count 362x10^3/uL (140-400) Neutrophils (%) (Auto) 66% (31-73) Lymphocytes (%) (Auto) 23% (24-48) Monocytes (%) (Auto) 8% (0-9) Eosinophils (%) (Auto) 2% (0-3) Basophils (%) (Auto) 1% (0-3) Neutrophils # (Auto) 6.9x10^3uL (1.8-7.7) Lymphocytes # (Auto) 2.5x10^3/uL (1.0-4.8) Monocytes # (Auto) 0.8x10^3/uL (0.0-1.1) Eosinophils # (Auto) 0.2x10^3/uL (0.0-0.7) Basophils # (Auto) 0.1x10^3/uL (0.0-0.2) Sodium Level 140mmol/L (136-145) Potassium Level 3.8mmol/L (3.5-5.1) Chloride Level 103mmol/L (98-107) Carbon Dioxide Level 29mmol/L (21-32) Anion Gap 8 (6-14) Blood Urea Nitrogen 20mg/dL (7-20) Creatinine 0.9mg/dL (0.6-1.0) Estimated GFR (Cockcroft-Gault) 62.3 Glucose Level 108mg/dL (70-99) Calcium Level 9.2mg/dL (8.5-10.1) Urine Collection Type Unknown Urine Color Yellow Urine Clarity Clear Urine pH 7.0 Urine Specific [place] 1.020 Urine Protein Negativemg/dL (NEG-TRACE) Urine Glucose (UA) Negativemg/dL (NEG) Urine Ketones (Stick) Negativemg/dL (NEG) Urine Blood Negative (NEG) Urine Nitrite Negative (NEG) Urine Bilirubin Negative (NEG) Urine Urobilinogen Dipstick 1.0mg/dL (0.2 mg/dL) Urine Leukocyte Esterase Moderate (NEG) Urine RBC Rare/HPF (0-2) Urine WBC 5-10/HPF (0-4) Urine Squamous Epithelial Cells Few/LPF Urine Bacteria Few/HPF (0-FEW) Urine Mucus Slight/LPF Urine Opiates Screen Pos (NEG) Urine Methadone Screen Neg (NEG) Urine Barbiturates Neg (NEG) Urine Phencyclidine Screen Neg (NEG) Urine Amphetamine/Methamphetamine Neg (NEG) Urine Benzodiazepines Screen Neg (NEG) Urine Cocaine Screen Neg (NEG) Urine Cannabinoids Screen Neg (NEG) Urine Ethyl Alcohol Neg (NEG) Test 11/14/16 13:22 11/14/16 15:30 Glucose (Fingerstick) 108mg/dL (70-99) Erythrocyte Sedimentation Rate 32 (0-25) Creatine Kinase 78U/L (26-192) Assessment and Plan Assessmemt and Plan Problems Medical Problems: (1) Unsteady gait Status: Acute (2) Weakness Status: Acute Problems: Comment Review of Relevant I have reviewed the following items lawrence (where applicable) has been applied. Labs Laboratory Tests Test 11/13/16 15:19 11/13/16 15:20 11/13/16 20:34 11/14/16 05:20 Glucose (Fingerstick) 88mg/dL (70-99) 152mg/dL (70-99) White Blood Count 13.2x10^3/uL (4.0-11.0) 10.6x10^3/uL (4.0-11.0) Red Blood Count 4.95x10^6/uL (3.50-5.40) 4.36x10^6/uL (3.50-5.40) Hemoglobin 13.9g/dL (12.0-15.5) 12.4g/dL (12.0-15.5) Hematocrit 42.3% (36.0-47.0) 38.4% (36.0-47.0) Mean Corpuscular Volume 85fL (79-100) 88fL (79-100) Mean Corpuscular Hemoglobin 28pg (25-35) 28pg (25-35) Mean Corpuscular Hemoglobin Concent 33g/dL (31-37) 32g/dL (31-37) Red Cell Distribution Width 13.3% (11.5-14.5) 13.4% (11.5-14.5) Platelet Count 480x10^3/uL (140-400) 362x10^3/uL (140-400) Neutrophils (%) (Auto) 75% (31-73) 66% (31-73) Lymphocytes (%) (Auto) 17% (24-48) 23% (24-48) Monocytes (%) (Auto) 7% (0-9) 8% (0-9) Eosinophils (%) (Auto) 1% (0-3) 2% (0-3) Basophils (%) (Auto) 1% (0-3) 1% (0-3) Neutrophils # (Auto) 9.9x10^3uL (1.8-7.7) 6.9x10^3uL (1.8-7.7) Lymphocytes # (Auto) 2.2x10^3/uL (1.0-4.8) 2.5x10^3/uL (1.0-4.8) Monocytes # (Auto) 0.9x10^3/uL (0.0-1.1) 0.8x10^3/uL (0.0-1.1) Eosinophils # (Auto) 0.1x10^3/uL (0.0-0.7) 0.2x10^3/uL (0.0-0.7) Basophils # (Auto) 0.1x10^3/uL (0.0-0.2) 0.1x10^3/uL (0.0-0.2) Sodium Level 137mmol/L (136-145) 140mmol/L (136-145) Potassium Level 4.3mmol/L (3.5-5.1) 3.8mmol/L (3.5-5.1) Chloride Level 100mmol/L (98-107) 103mmol/L (98-107) Carbon Dioxide Level 28mmol/L (21-32) 29mmol/L (21-32) Anion Gap 9 (6-14) 8 (6-14) Blood Urea Nitrogen 18mg/dL (7-20) 20mg/dL (7-20) Creatinine 0.9mg/dL (0.6-1.0) 0.9mg/dL (0.6-1.0) Estimated GFR (Cockcroft-Gault) 62.3 62.3 Glucose Level 104mg/dL (70-99) 108mg/dL (70-99) Calcium Level 9.6mg/dL (8.5-10.1) 9.2mg/dL (8.5-10.1) Test 11/14/16 08:00 11/14/16 11:30 11/14/16 13:22 11/14/16 15:30 Glucose (Fingerstick) 131mg/dL (70-99) 108mg/dL (70-99) Urine Collection Type Unknown Urine Color Yellow Urine Clarity Clear Urine pH 7.0 Urine Specific [place] 1.020 Urine Protein Negativemg/dL (NEG-TRACE) Urine Glucose (UA) Negativemg/dL (NEG) Urine Ketones (Stick) Negativemg/dL (NEG) Urine Blood Negative (NEG) Urine Nitrite Negative (NEG) Urine Bilirubin Negative (NEG) Urine Urobilinogen Dipstick 1.0mg/dL (0.2 mg/dL) Urine Leukocyte Esterase Moderate (NEG) Urine RBC Rare/HPF (0-2) Urine WBC 5-10/HPF (0-4) Urine Squamous Epithelial Cells Few/LPF Urine Bacteria Few/HPF (0-FEW) Urine Mucus Slight/LPF Urine Opiates Screen Pos (NEG) Urine Methadone Screen Neg (NEG) Urine Barbiturates Neg (NEG) Urine Phencyclidine Screen Neg (NEG) Urine Amphetamine/Methamphetamine Neg (NEG) Urine Benzodiazepines Screen Neg (NEG) Urine Cocaine Screen Neg (NEG) Urine Cannabinoids Screen Neg (NEG) Urine Ethyl Alcohol Neg (NEG) Erythrocyte Sedimentation Rate 32 (0-25) Creatine Kinase 78U/L (26-192) Laboratory Tests Test 11/13/16 20:34 11/14/16 05:20 11/14/16 08:00 11/14/16 11:30 Glucose (Fingerstick) 152mg/dL (70-99) 131mg/dL (70-99) White Blood Count 10.6x10^3/uL (4.0-11.0) Red Blood Count 4.36x10^6/uL (3.50-5.40) Hemoglobin 12.4g/dL (12.0-15.5) Hematocrit 38.4% (36.0-47.0) Mean Corpuscular Volume 88fL (79-100) Mean Corpuscular Hemoglobin 28pg (25-35) Mean Corpuscular Hemoglobin Concent 32g/dL (31-37) Red Cell Distribution Width 13.4% (11.5-14.5) Platelet Count 362x10^3/uL (140-400) Neutrophils (%) (Auto) 66% (31-73) Lymphocytes (%) (Auto) 23% (24-48) Monocytes (%) (Auto) 8% (0-9) Eosinophils (%) (Auto) 2% (0-3) Basophils (%) (Auto) 1% (0-3) Neutrophils # (Auto) 6.9x10^3uL (1.8-7.7) Lymphocytes # (Auto) 2.5x10^3/uL (1.0-4.8) Monocytes # (Auto) 0.8x10^3/uL (0.0-1.1) Eosinophils # (Auto) 0.2x10^3/uL (0.0-0.7) Basophils # (Auto) 0.1x10^3/uL (0.0-0.2) Sodium Level 140mmol/L (136-145) Potassium Level 3.8mmol/L (3.5-5.1) Chloride Level 103mmol/L (98-107) Carbon Dioxide Level 29mmol/L (21-32) Anion Gap 8 (6-14) Blood Urea Nitrogen 20mg/dL (7-20) Creatinine 0.9mg/dL (0.6-1.0) Estimated GFR (Cockcroft-Gault) 62.3 Glucose Level 108mg/dL (70-99) Calcium Level 9.2mg/dL (8.5-10.1) Urine Collection Type Unknown Urine Color Yellow Urine Clarity Clear Urine pH 7.0 Urine Specific [place] 1.020 Urine Protein Negativemg/dL (NEG-TRACE) Urine Glucose (UA) Negativemg/dL (NEG) Urine Ketones (Stick) Negativemg/dL (NEG) Urine Blood Negative (NEG) Urine Nitrite Negative (NEG) Urine Bilirubin Negative (NEG) Urine Urobilinogen Dipstick 1.0mg/dL (0.2 mg/dL) Urine Leukocyte Esterase Moderate (NEG) Urine RBC Rare/HPF (0-2) Urine WBC 5-10/HPF (0-4) Urine Squamous Epithelial Cells Few/LPF Urine Bacteria Few/HPF (0-FEW) Urine Mucus Slight/LPF Urine Opiates Screen Pos (NEG) Urine Methadone Screen Neg (NEG) Urine Barbiturates Neg (NEG) Urine Phencyclidine Screen Neg (NEG) Urine Amphetamine/Methamphetamine Neg (NEG) Urine Benzodiazepines Screen Neg (NEG) Urine Cocaine Screen Neg (NEG) Urine Cannabinoids Screen Neg (NEG) Urine Ethyl Alcohol Neg (NEG) Test 11/14/16 13:22 11/14/16 15:30 Glucose (Fingerstick) 108mg/dL (70-99) Erythrocyte Sedimentation Rate 32 (0-25) Creatine Kinase 78U/L (26-192) Medications Current Medications Gadobutrol (Gadavist) 10 mmol 1X ONCE IV Last administered on 11/13/16t 16:45 ; Admin Dose 10 MMOL; Start 11/13/16 at 16:30; Stop 11/13/16 at 16:31; Status DC Ondansetron HCl (Zofran) 4 mg PRN Q8HRS PRN IV NAUSEA/VOMITING; Start 11/13/16 at 16:45; Stop 11/14/16 at 16:44; Status DC Acetaminophen (Tylenol) 650 mg PRN Q4HRS PRN PO FEVER; Start 11/13/16 at 16:45 ; Stop 11/14/16 at 16:44; Status DC Aspirin (Nelly Aspirin) 325 mg 1X ONCE PO Last administered on 11/13/16 17:25 ; Admin Dose 325 MG; Start 11/13/16 at 17:00; Stop 11/13/16 at 17:01; Status DC Aspirin (Ecotrin) 81 mg DAILY PO Last administered on 11/14/16 08:12; Admin Dose 81 MG; Start 11/14/16 at 09:00 Hydrochlorothiazide (Hydrodiuril) 25 mg DAILY PO Last administered on 08:12; Admin Dose 25 MG; Start 11/14/16 at 09:00 Acetaminophen/ Hydrocodone Bitart (Lortab 10/325) 1 tab PRN Q6HRS PRN PO PAIN Last administered on 11/14/16 08:13; Admin Dose 1 TAB; Start 11/13/16 at 23:15 Lorazepam (Ativan) 1 mg PRN DAILY PRN PO ANXIETY / AGITATION; Start 11/13/16 at 23:15 Metoprolol Tartrate (Lopressor) 50 mg BID PO ; Start 11/14/16 at 09:00; Stop at 09:00; Status DC Venlafaxine HCl (Effexor) 300 mg DAILY PO Last administered on 11/14/16 08:15 ; Admin Dose 300 MG; Start 11/14/16 at 09:00 Bupropion HCl (Wellbutrin Xl) 300 mg DAILY PO Last administered on 11/14/16 08 :15; Admin Dose 300 MG; Start 11/14/16 at 09:00 Vitamin D (Vitamin D3) 2,000 unit DAILY PO Last administered on 11/14/16 08:14 ; Admin Dose 2,000 UNIT; Start 11/14/16 at 09:00 Fenofibrate (Lofibra) 134 mg DAILY PO Last administered on 11/14/16 08:12; Admin Dose 134 MG; Start 11/14/16 at 09:00 Glimepiride (Amaryl) 1 mg DAILY PO Last administered on 11/14/16 08:15; Admin Dose 1 MG; Start 11/14/16 at 09:00 Pantoprazole Sodium (Protonix) 40 mg DAILYAC PO Last administered on 11/14/16 08:12; Admin Dose 40 MG; Start 11/14/16 at 07:30 Simvastatin (Zocor) 80 mg HS PO ; Start 11/14/16 at 21:00; Stop 11/14/16 at 21: 00; Status DC Metoprolol Tartrate (Lopressor) 50 mg BID PO Last administered on 11/14/16 08: 14; Admin Dose 50 MG; Start 11/13/16 at 23:45 Simvastatin (Zocor) 80 mg HS PO Last administered on 11/14/16 00:09; Admin Dose 80 MG; Start 11/13/16 at 23:45 Methylprednisolone Acetate (Depo-Medrol 40mg Vial) 40 mg 1X ONCE IM ; Start at 10:15; Stop 11/14/16 at 10:16; Status DC Bupivacaine HCl (Sensorcaine-Mpf 0.25%) 10 ml 1X ONCE IJ ; Start 11/14/16 at 10 :15; Stop 11/14/16 at 10:16; Status DC Active Scripts Active Reported Glimepiride 1 Mg Tablet 1 Tab PO DAILY Hydrocodone-Apap 10-325 (Hydrocodone Bit/Acetaminophen) 1 Each Tablet 1 Tab PO PRN Q6HRS PRN Lorazepam 1 Mg Tablet 1 Mg PO PRN DAILY PRN Colace (Docusate Sodium) 50 Mg Capsule 50 Mg PO PRN Vitamin D3 (Cholecalciferol (Vitamin D3)) 2,000 Unit Capsule 2,000 Unit PO DAILY Aspir 81 (Aspirin) 81 Mg Tablet. 81 Mg PO DAILY Hydrochlorothiazide Tablet (Hydrochlorothiazide) 25 Mg Tablet 25 Mg PO DAILY Simvastatin 80 Mg Tablet 80 Mg PO HS Trilipix (Fenofibric Acid (Choline)) 135 Mg Capsule. 135 Mg PO DAILY Omeprazole 40 Mg Capsule. 40 Mg PO DAILY Metoprolol Tartrate 50 Mg Tablet 50 Mg PO BID Bupropion Xl (Bupropion Hcl) 300 Mg Tab.er.24h 300 Mg PO DAILY Venlafaxine Hcl 75 Mg Tablet 300 Mg PO DAILY Kate Allergy (Fexofenadine Hcl) 60 Mg Tablet 60 Mg PO PRN Vitals/I & O Vital Sign - Last 24 Hours 11/13/16 11/13/16 11/13/16 11/14/16 19:58 20:00 23:00 00:10 Temp 97.9 98.6 97.9 98.6 Pulse 67 66 66 Resp 20 20 B/P 122/55 125/58 125/58 Pulse Ox 98 97 O2 Delivery Room Air Room Air Room Air 11/14/16 11/14/16 11/14/16 11/14/16 01:55 03:00 07:00 08:00 Temp 98.1 97.5 98.1 97.5 Pulse 65 89 Resp 20 18 B/P 128/61 142/85 Pulse Ox 97 94 O2 Delivery Room Air Room Air Room Air Room Air 11/14/16 11/14/16 11/14/16 11/14/16 08:13 08:14 09:13 11:00 Temp 98.6 98.6 Pulse 89 73 Resp 17 18 B/P 142/85 140/56 Pulse Ox 94 96 O2 Delivery Room Air Room Air 11/14/16 15:00 Temp 98.5 98.5 Pulse 70 Resp 18 B/P 139/59 Pulse Ox 97 O2 Delivery Room Air Intake and Output 11/13/16 11/13/16 11/14/16 15:00 23:00 07:00 Intake Total 200 ml Balance 200 ml BHUPENDRA GALE MD Nov 14, 2016 19:31
[2016-11-14 19:42] VITALS: BP 125/53
--- NOTE | 2016-11-14 20:48 | DS ---
DATE OF DISCHARGE: 11/15/2016 DISCHARGE DIAGNOSES: 1. Generalized weakness, pronounced in lower extremity, resolved, unclear etiology, degenerative disease 2. Hypertension, stable. 3. Hyperlipidemia, stable. 4. Prior history of diabetes mellitus, stable. BRIEF HOSPITAL COURSE: A 66-year-old female patient presented to the ER with complaints of shaking in lower extremities and the patient was requiring help to walk; however, upon my examination, the patient did not show any signs of weakness, her strength in both lower extremities is 5/5. No tremors or weakness are noted, sensations are intact. During hospitalization, she had several imaging studies such as carotid Doppler, which showed moderate atherosclerotic plaque, left greater than right, less than 50%. cervical spine MRI showed disk osteophyte complexes with C3-C4 and through C5-C6 canal stenosis. Lumbar spine MRI showed degenerative disk disease and posterior decompression from L3-L4 through L5-S1. 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 She is hemodynamically stable, no fever , no signs of infection seen. DISCHARGE EXAMINATION: GENERAL: Alert, oriented x 3. HEART: S1, S2 present. LUNGS: Clear to auscultation. ABDOMEN: Soft, nontender, no organomegaly. EXTREMITIES: No edema. DISCHARGE DISPOSITION: Home. DISCHARGE CONDITION: Stable. CONSULTATIONS DURING HOSPITALIZATION: Dr. Seymour, Dr. Flores. FOLLOWUP: She couldn't able to see Dr Lopez as he in surgery today, she will be seeing him next couple of days, recommend to see PCP if she develops any fever and new weakness. DISCHARGE MEDICATIONS: Reviewed, reconciled, no new medications. Please see MRAD. Total time spent for discharge is 31 minutes for patient education, counseling, coordination of care, and physical exam. BHUPENDRA GALE MD DR: GUILLERMO/annie JOB#: [id number] / [id number] SANTOS
[2016-11-14] MEDS ORDERED: SIMVASTATIN 40 MG TABLET. PO SCH (21:00)
[2016-11-14 23:01] VITALS: BP 143/82
--- NOTE | 2016-11-15 01:06 | CONS ---
DATE OF CONSULTATION: 11/14/2016 PATIENT'S ROOM: 646. ATTENDING PHYSICIAN: Dr. Irving. The patient was seen at the request of Dr. Irving for rehab evaluation. HISTORY OF PRESENT ILLNESS: This is a 66-year-old female who developed an acute episode of lower extremity weakness and shaking of her body while taking a shower on 11/13/2016. She had trouble standing and had to brace herself against a wall to avoid falling. She felt weak in her lower extremities and upon standing, does seem to have shaking. She went to urgent care and transferred to Emergency Room for further evaluation. She has been having issues while driving car in which she states her right foot has trouble pressing on the pedals. Patient was noted in the Emergency Room, being alert, following commands. She denied any chest pain or shortness of breath. 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 No acute findings were noted. The patient is status post right total knee arthroplasty done by Dr. Billy Brody in the past without any problems. She had lumbar laminectomy done in [address] Lopez without any lasting help and she had gone through lumbar epidural steroid injections without much help. Patient with known diabetes mellitus type 2, under control with medication, hypertension. The patient had laminectomy actually twice. Patient is known allergic to nickel. She lives with her in a [place], [place] home, had few steps to manage. She had a walker and cane at home, but does not need to use them all the time. PHYSICAL EXAMINATION: Today revealed a middle-aged female. She is alert, oriented to time, place, person and circumstance and follows commands appropriately. No obvious visual field cut or facial asymmetry noted. She had 5/5 grade muscle strength in her upper and lower extremities. Deep tendon reflexes are decreased at right knee, absent at both ankles, but hyperreflexia to some extent at left knee. She had equal perception of touch and pinprick sensation bilaterally. She had slight degree of thenar eminence muscle atrophy in both hands with negative Tinel sign over median nerve at the wrist and over ulnar wrist and elbow. She is independent with bed mobility and transfers and walks using a roller walker and without walker without any loss of balance. She had some difficulty trying to walk on a straight line, one foot in front of the other. She can make a few steps on her tiptoes and on her heels with assistance. She is not using proper body mechanics during mobility. Straight leg raising test is negative bilaterally. She had tenderness to palpation over cervical and upper thoracic paraspinal muscles and also over sacroiliac joint area, right side more than left side and over trochanteric bursa area. She had crepitus on range of motion of the left knee joint without any obvious knee joint effusion. She had pain free range of motion of both hip joints. She had good ____ using both upper extremities. No obvious visual field cut or facial asymmetry or communication or swallowing problems noted. She denies any trouble with her bowel or bladder control. Her skin is intact at this time. ASSESSMENT: A middle-aged female with diabetes mellitus and hypertension with sudden onset of ataxia and shaking yesterday. No evidence of ____ cerebrovascular accident as per MRI scan of the brain. She had slight degree of hyperreflexia at the left knee and some neck pain, but no clinical evidence of cervical radiculopathy to obtain MRI scan of her cervical vertebrae to rule out any cervical spinal stenosis and also to obtain MRI scan of her lumbar vertebrae as she apparently had some weakness in the past with plantar flexors of her right foot. No obvious evidence of lumbar radiculopathy at this time, but she had degenerative disk disease of lumbar vertebrae, status post two lumbar spine surgeries with associated bilateral trochanteric bursitis and degenerative joint disease of left knee without any significant discomfort and status post right total knee arthroplasty without any problems and also clinical evidence of peripheral neuropathy from her diabetes mellitus. I have looked for any hypoglycemia causing her shaking, but it was not recorded in the Emergency Room. RECOMMENDATIONS: To also proceed with MRI scan of her lumbar vertebrae to make sure there is no lesion and I am going to proceed with injecting her right sacroiliac joint area to help ease some of her back pain as she is having most of the pain lying down, not that much sitting or standing up, to hold off any lumbar support brace at this time. Home with outpatient followup when medically stable. Dr. Irving, I appreciate asking me to participate in the care of this interesting patient. I will be glad to follow her with you as needed for her rehabilitation. SACHA FRASER MD DR: LAURA/annie JOB#: [id number] / [id number] ESVIN Monterroso MD
[2016-11-15 07:00] VITALS: BP 133/54
[2016-11-15] MEDS: PANTOPRAZOLE 40 MG TABLET. PO SCH (07:55)
[2016-11-15] MEDS: GLIMEPIRIDE 2 MG TABLET PO SCH (07:55)
[2016-11-15] MEDS: buPROPion XL 150 MG TAB.ER.24H PO SCH (07:55)
[2016-11-15] MEDS: CHOLECALCIFEROL (VITAMIN D3) 1,000 UNIT TABLET PO SCH (07:56)
[2016-11-15] MEDS: ASPIRIN ENTERIC COATED 81 MG TABLET.DR. PO SCH (07:56)
[2016-11-15] MEDS: VENLAFAXINE 75 MG TABLET. PO SCH (07:56)
[2016-11-15] MEDS: FENOFIBRATE,MICRONIZED 134 MG CAPSULE PO SCH (07:57)
[2016-11-15] MEDS: HYDROCHLOROTHIAZIDE 25 MG TABLET PO SCH (08:00)
[2016-11-15] MEDS: METOPROLOL TART IMMED RELEASE 50 MG TABLET PO SCH (08:01)
[2016-11-15 10:59] VITALS: BP 138/66
== END 2016-11-15 12:10 | disposition home or self-care (01) | DRG 948 ==
LOC: ER 15:07 → 6 SOUTH 16:30
PROVIDERS: ADMIT Internal Medicine; ATTEND Internal Medicine
DX: R53.1 Weakness (principal); E11.649 Type 2 diabetes mellitus with hypoglycemia without coma; E66.9 Obesity, unspecified; Z68.36 Body mass index [BMI] 36.0-36.9, adult; E78.5 Hyperlipidemia, unspecified; F01.50 Vascular dementia, unspecified severity, without behavioral disturbance, psychotic disturbance, mood disturbance, and anxiety; I10 Essential (primary) hypertension; M17.12 Unilateral primary osteoarthritis, left knee; M48.02 Spinal stenosis, cervical region; M51.37 Other intervertebral disc degeneration, lumbosacral region; Z96.651 Presence of right artificial knee joint; F41.9 Anxiety disorder, unspecified; Z86.73 Personal history of transient ischemic attack (TIA), and cerebral infarction without residual deficits; M46.46 Discitis, unspecified, lumbar region
CPT/HCPCS: 36415; 70553; 72141; 72148; 80048; 81001; 82550; 82947; 85027; 85651; 86431; 87086; 93005; 93880; 96374; A9585; G0481; 99285-25

== ENCOUNTER → 2019-04-12 | Outpatient (CLI) | payer MEDICARE ==
[~2019-04-12] MED LIST changes: +BUPIVACAINE MPF 0.25% 10 ML VIAL. ONE; -CHOL20003 PO; +CHOL20009 PO; +GLIM1TAB2 PO; +HYDR-2145 PO; -HYDR-2672 PO; +HYDR-2769 PO; +HYDR-3135 PO; +HYDR-3165 PO; -HYDR-963 PO; -HYDR-965 PO; -HYDR25TA9 PO; +IOHEXOL 180 MG/ML 10 ML VIAL. ONE; +METH2.5T PO; -METO50TA2 PO; +METO50TA6 PO; +PREG150C PO; +SIMV80TA17 PO; -SIMV80TA3 PO; +methylPREDNISolone ACETATE 80 MG/ML VIAL. ONE
--- NOTE | 2019-04-12 13:35 | PAIN ---
DATE OF SERVICE: 04/12/2019 DIAGNOSIS: Low back and right lower extremity pain. HISTORY OF PRESENT ILLNESS: This is a 68-year-old female with pain in low back, right lower extremity in a radicular pattern that has been going on for about 8 months, the patient reports, without any specific injury or accident that she is aware of. She has had previous back surgery twice and has seen her neurosurgeon recently who is recommending conservative treatments and no further surgery. The patient with pain in low back, right lower extremity and anterior thigh, anterior medial thigh, medial lower leg and into the gluteus as well across the low back. The patient reports it is constant, sharp, stabbing, throbbing, shooting, burning, waking her from sleep occasionally but not every night once or twice. The patient is using a cane and has a walker with her today, does not affect her bowel or bladder control. The patient has had previous trigger point injections, epidural injections, physical therapy, chiropractic treatment and is doing exercise currently, none of which have had any longevity in decreasing the pain. The patient is taking Lyrica and gabapentin. She reports both of these seem to help to a mild extent, but only about 10%-20%. The patient reports no side effects with the medications, however, but still significant pain with activity, walking, standing and again waking her from sleep at night. PAST MEDICAL HISTORY: Significant for type 2 diabetes, hearing loss, hypertension, gastroesophageal reflux, dizziness, arthritis. CURRENT MEDICATIONS: Include Mucinex, Kate, clindamycin, clonazepam, baby aspirin, stool softener, vitamin D, folic acid, methotrexate, eyedrops, hydrochlorothiazide, glimepiride, Lyrica, simvastatin, fenofibric acid, omeprazole, bupropion, metoprolol, venlafaxine. ALLERGIES: The patient is ALLERGIC to NICKEL. FAMILY HISTORY: Significant for depression, psoriasis, heart disease. SOCIAL HISTORY: The patient drinks alcohol only socially, maybe once a year; is working on quitting smoking. Does not use any illegal, illicit or recreational drugs. She is and lives in [place], [place] locally and is currently retired. REVIEW OF SYSTEMS: The patient's review of systems is positive for those items mentioned in history of present illness. All systems reviewed and otherwise negative. It is complete, full and well documented on the patient's chart. PHYSICAL EXAMINATION: VITAL SIGNS: The patient's blood pressure 133/76, pulse 70, respirations 18, temperature 98.2 degrees Fahrenheit, height is 5 feet 3 inches, weight is 208 pounds. GENERAL: The patient is awake, alert, oriented, appropriate, very pleasant demeanor. HEENT: Head is normocephalic, atraumatic. Extraocular movements are intact and symmetrical. Oral cavity: Mucous membranes are moist and pink. Dentition is intact. NECK: Shows anterior throat supple without palpable lymphadenopathy noted. Swallow reflex symmetrical. CHEST: Shows normal with inspection. Breath sounds clear to auscultation bilaterally. HEART: Shows S1, S2 clear. No murmurs auscultated. ABDOMEN: Soft, nontender, nondistended. No palpable organomegaly is noted. No rebound or guarding demonstrated. BACK: Shows spine grossly in the midline. Normal appearing thoracic kyphosis and flattening of lumbar lordotic curvature. Well-healed surgical scar is noted. Lumbar paraspinous muscle shows symmetrical on inspection. With palpation shows some moderate tenderness, but only diffusely in the middle and lower distribution of paraspinous muscle. The patient has good rotational motion of lumbar spine, both laterally greater than 10 degrees right and left as well as extension greater than 10 degrees, forward flexion 45 degrees without significant pain reported. EXTREMITIES: Lower extremities show deep tendon reflexes 1+ in the patellar and tendo calcaneus tendons. Motor exam is 5/5 with dorsiflexion, extension, quadriceps and hamstring flexion and symmetrical. Peripheral pulses are 1+ posterior tibia. No peripheral edema is noted. Options were discussed with the patient. The patient's old chart was reviewed as her current medication regimen updated. Current review of systems updated today as well. We will proceed with a right-sided L3-L4 transforaminal injection today with fluoroscopic guidance. Risks were again discussed including, but not limited to bleeding, infection, possibility of epidural hematoma and subsequent neurologic compromise, dural puncture, headaches, spinal cord and/or nerve damage, potential injection of vertebral artery at that level and permanent ischemic damage as well as side effects of steroid medications, exposure to fluoroscopy and poor results regarding pain control. The patient understands and wished to proceed. The patient will return to clinic in approximately 2 weeks for followup, was counseled as to return appointment, activity level and side effects to be aware of. DIAGNOSES: Lumbar radiculopathy with lumbar degenerative disk disease, lumbar spinal stenosis and post-lumbar laminectomy syndrome. PROCEDURE: Right-sided L3-L4 transforaminal injection using C-arm fluoroscopic guidance under sterile prep and drape using local anesthetic and 22-gauge Kate needle with stylet. MEDICATION INJECTED: A total of 2 mL of 0.25% bupivacaine and 80 mg Depo-Medrol, 1.5 mL of contrast with good spread both medially into the epidural space as well as laterally along the nerve root at the L3-L4 level on the right and without uptake on digital subtraction. CONDITION AT DISCHARGE: Stable. The patient tolerated the procedure well, had no complications. EDIS ANTON MD DR: DUNG/annie JOB#: [id number] / [id number]
== END ==
LOC: PNCL 10:40
PROVIDERS: ATTEND Anesthesiology
DX: M51.16 Intervertebral disc disorders with radiculopathy, lumbar region (principal); M48.061 Spinal stenosis, lumbar region without neurogenic claudication; M96.1 Postlaminectomy syndrome, not elsewhere classified; E11.9 Type 2 diabetes mellitus without complications; I10 Essential (primary) hypertension; K21.9 Gastro-esophageal reflux disease without esophagitis; H91.90 Unspecified hearing loss, unspecified ear; Z79.82 Long term (current) use of aspirin; Z87.39 Personal history of other diseases of the musculoskeletal system and connective tissue; Z79.84 Long term (current) use of oral hypoglycemic drugs; Z88.8 Allergy status to other drugs, medicaments and biological substances; Z72.89 Other problems related to lifestyle; Z87.891 Personal history of nicotine dependence
CPT/HCPCS: 64483; J1040; J3490; Q9965

== ENCOUNTER → 2019-08-16 | Outpatient (CLI) | payer MEDICARE ==
[~2019-08-16] MED LIST changes: -BUPIVACAINE MPF 0.25% 10 ML VIAL. ONE; -GLIM1TAB2 PO; +GLIM1TAB3 PO; -IOHEXOL 180 MG/ML 10 ML VIAL. ONE; +OMEP40CA45 PO; -OMEP40CA5 PO; -methylPREDNISolone ACETATE 80 MG/ML VIAL. ONE
--- NOTE | 2019-08-16 14:05 | KCIC ---
MRI Brain without contrast History: Cognitive decline, progressive memory loss Technique: Multiplanar, multisequential noncontrast MR imaging was performed of the brain. Comparison: November 13, 2016 Findings: There is no evidence of recent infarct or cytotoxic edema. Ventricular size is stable, proportionate to the sulcal spaces. There is mild generalized supratentorial involutional change as seen previously. There is no significant midline shift, intraaxial mass effect, or focal abnormal extra-axial fluid collection. There is again scattered multifocal moderate to severe T2 and FLAIR hyperintense abnormality of the supratentorial parenchyma bilaterally, slightly greater of the right centrum semiovale in interval. There are also foci of T2 and FLAIR hyperintense abnormality of the bilateral basal ganglia and thalami overall unchanged. There is again minimal fairly severe T2 and FLAIR hyperintense abnormality of the delon. There is old large right pontine lacunar infarct as seen previously, also small old lacunar infarcts of the bilateral basal ganglia including the left caudate head. There is small focus of old hemosiderin deposition of the right cerebellum as seen previously. There is preservation of the major intracranial flow-voids at the skull base. There is mild to moderate fluid of the left mastoid air cells inferiorly as seen previously.The cerebellar tonsils are normal in location. There is no significant abnormality of the pineal gland or small pituitary gland. There is new fairly severe right maxillary sinus mucosal thickening. 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 There is doac-tu-rfcajxdh ethmoid air cell mucosal thickening bilaterally overall increased, minimally of the frontal sinus. There is new moderate right sphenoid sinus mucosal thickening. There again has been lens surgery bilaterally. There is preserved marrow signal of the clivus. Impression: 1. There is no evidence of recent infarct or intracranial mass effect. There is multifocal T2 and FLAIR hyperintense signal abnormality of the delon and supratentorial parenchyma bilaterally somewhat progressed since 2017 exam, nonspecific findings probably due to to chronic microvascular ischemic disease. There are old lacunar infarcts as stated, including large focus of the right delon. There is mild supratentorial involutional change. 2. There is new severe right maxillary sinus mucosal thickening, also increased bilateral ethmoid air cell mucosal thickening bilaterally. Electronically signed by: Clyde Sadler MD (08/16/2019 2:02 PM) [id number]
== END | disposition home or self-care (01) ==
LOC: KCIC MRI 10:50
PROVIDERS: ATTEND Nurse Practitioner Adult Health
DX: J34.89 Other specified disorders of nose and nasal sinuses (principal); I63.81 Other cerebral infarction due to occlusion or stenosis of small artery; G31.84 Mild cognitive impairment of uncertain or unknown etiology
CPT/HCPCS: 70551